=== PATIENT | female | born 1975 | race Caucasian/White ===

== ENCOUNTER 2017-01-24 15:17 | Outpatient (CLI) | payer OTHER ==
[2013-05-11 00:55] VITALS: BP 128/74
[2017-01-24 15:35] LABS: BASOPHILS % 0.5 (0.0-1.5); MEAN CORPUSCULAR HEMOGLOBIN 31.1 pg (28.0-34.0); MEAN CORPUSCULAR VOLUME 88.9 fl (80.0-100.0); MONOCYTES % 3.8 % (0.0-11.0); NEUTROPHILS # 6.9 # k/uL (1.4-7.7)
[2017-01-24 16:02] LABS: eGFR (African) > 60; eGFR (Non-African) > 60
== END 2017-01-24 15:19 ==
LOC: LAB 15:17
PROVIDERS: ATTEND Physician Assistant
DX: R10.13 Epigastric pain (principal)
CPT/HCPCS: 36415; 80053; 85025

== ENCOUNTER 2017-01-26 10:12 | Day surgery (SDC) | payer OTHER ==
[2013-05-11 00:55] VITALS: BP 128/74
--- NOTE | 2017-01-27 10:13 | Operative Note ---
SURGEON: Yovanny Hess MD ANESTHESIA: MAC anesthesia. ESTIMATED BLOOD LOSS: None. COMPLICATIONS: None. FINDINGS: Normal exam. PREOPERATIVE DIAGNOSIS: Epigastric pain. POSTOPERATIVE DIAGNOSIS: Epigastric pain. PROCEDURE PERFORMED: Esophagogastroduodenoscopy (EGD). INDICATIONS FOR PROCEDURE: This is a 41-year-old woman with 2 weeks of epigastric pain, nausea, and vomiting after eating. DESCRIPTION OF PROCEDURE: The patient was brought to the endoscopy suite and placed in the left lateral decubitus position. MAC anesthesia was administered by the miniature set constructor. The endoscope was inserted and passed easily to the duodenum. The duodenum, stomach , and esophagus were all normal. There were no ulcers or other lesions. There was no gastritis. The endoscope was removed. RECOMMENDATIONS: I recommend a gallbladder ultrasound to further evaluate her pain. cc: Dr. Stefanie SMITH
== END 2017-01-26 10:13 ==
LOC: OPSURG 10:12
PROVIDERS: ATTEND Colon & Rectal Surgery
DX: R10.13 Epigastric pain (principal)
CPT/HCPCS: 81025; J2704; 43235; S1016

== ENCOUNTER 2017-01-27 07:37 | Emergency (ER) | payer OTHER ==
[2017-01-27] MEDS: 0.9 % SODIUM CHLORIDE 1,000 ML IV ONE (08:39)
[2017-01-27] MEDS: ONDANSETRON HCL/PF 4 MG/ 2ML VIAL IVP ONE (08:39)
[2017-01-27] MEDS: KETOROLAC TROMETHAMINE 30 MG/1ML VIAL IVP ONE (08:39)
[2017-01-27] MEDS ORDERED: PHARMACY KEY 1 EACH EACH MC ONE (08:43)
[2017-01-27] MEDS: HYOSCYAMINE SULFATE 0.125 MG TAB.SUBL SL ONE (09:05)
[2017-01-27 11:29] VITALS: BP 126/80
--- NOTE | 2017-01-27 11:45 | ED Physician Documentation ---
Abdominal Pain - HISTORIAN Historian: patient - HPI Stated Complaint: ABD PAIN/N/V/D Chief Complaint: Abdominal Pain Additonal Information: abd. pain, n/v/d for last 3 weeks, EGD Monday neg Onset: days ago (20) Duration: waxing, waning, sudden-onset Timing: still present Context: denies: out of country travel, bad food, recent trauma Severity: moderate Quality: sharp Front/Back of Body, Lg (Color): 1 - pain Associated Symptoms: nausea, vomiting, diarrhea Exacerbated by: food Relieved by: other - ROS CONST: no problems GI/: denies: constipation, black stools, bloody urine, bloody stools, dark urine, problems urinating CVS/RESP: none EYES/ENT: none MS/SKIN/LYMPH: none NEURO/PSYCH: none - SOCIAL HX Smoking History: non-smoker Alcohol Use: occasionally Drug Use: none - FAMILY HX Family History: no significant history - PAST HX Past History: peptic ulcer Ischemic Bowel Risk Factors: none Other History: none Surgeries/Procedures: BLT Immunizations: referred to PCP Allergies/Adverse Reactions: Allergies Allergy/AdvReac Type Severity Reaction Status Date / Time No Known Allergies Allergy Verified 01/27/17 10:00 - VITAL SIGNS Vital Signs: Vital Signs Temp Pulse Resp BP Pulse Ox 98.1 F 84 18 126/80 98 01/27/17 11:20 01/27/17 11:20 01/27/17 11:20 01/27/17 11:20 01/27/17 07:39 - REVIEWED ASSESSMENTS Nursing Assessment Reviewed: Yes Vitals Reviewed: Yes Progress - Results/Orders Results/Orders: amylase, liver/gb/pancreas us, amylase ordered - Progress Progress: pt. stable in er, improved with hyoscyamine, zofran, ns and toradol Critical Care Note - Critical Care Note Total Time (mins): 0 ED Results Lab/Radiology - Lab Results Lab Results: Lab Results 01/27/17 08:40 Amylase 68 U/L U/L (20-104) - Radiology Radiology Impressions: us gb neg - Orders Orders: ED Orders Category Date Time Status Place Saline Lock/IV .PRN Care 01/27/17 08:11 Active ULTRASOUND OF ABD LIMITED [US ABDOMEN LIMITED] [US] Exams 01/27/17 Taken Stat AMYLASE Routine Lab 01/27/17 08:40 Completed 0.9 % Sodium Chloride [Normal Saline] 1,000 ml Med 01/27/17 08:11 Discontinued IV Q1H Hyoscyamine Sulfate [Oscimin Sl] Med 01/27/17 08:15 Discontinued 0.125 mg SL NOW ONE Ketorolac Tromethamine [Toradol] Med 01/27/17 08:15 Discontinued 30 mg IVP NOW ONE Ondansetron HCl/Pf [Zofran 4 mg/2 ml] Med 01/27/17 08:11 Discontinued 8 mg IVP NOW ONE [facility] Med 01/27/17 08:43 Discontinued 1 each MC .STK-MED ONE Abdominal Pain Physical Exam - Physical Exam General Appearance: alert, moderate distress EENT: eye inspection normal, ENT inspection normal, pharynx normal, no signs of dehydration, ELI, no nystagmus, TM's nml NECK: normal inspection, thyroid normal, supple RESPIRATORY: no resp distress, chest non-tender, breath sounds normal CVS: reg rate & rhythm, heart sounds normal, equal pulses, no murmur, no gallop , PMI nml, no JVD, no friction rub ABDOMEN: soft, tenderness (right upper quadrant), decreased BS BACK: normal inspection, no CVA tenderness SKIN: warm/dry, normal color EXTREMITIES: non-tender, normal range of motion, no evidence of injury, no edema NEURO: oriented X3, CN's nml as tested, motor nml, sensation nml, mood/affect nml, cognition normal Vital Signs: Vital Signs Temp Pulse Resp BP Pulse Ox 98.1 F 84 18 126/80 98 01/27/17 11:20 01/27/17 11:20 01/27/17 11:20 01/27/17 11:20 01/27/17 07:39 Discharge Clincal Impression: Biliary colic Referrals: tSefanie Colindres MD [Primary Care Provider] - 2 Days Comments: charged with scripts for reglan, hyoscyamine and zofran Condition: Stable Disposition: 01 HOME, SELF-CARE Decision to Admit: NO Decision Time: 11:49
--- NOTE | 2017-01-27 14:42 | Diagnostic Imaging Report ---
[facility] [address] [facility].[address] [address] Report Submission Date: January 27, 2017 9:55:16 AM CDT Patient Study Name: KAUSHIK GARNICA Date: January 27, 2017 8:47:10 AM CDT Modality Type: US Gender: F Description: US ABD LIMITED : 77 Institution: [facility] Physician KOBI AGUILAR - WILLIS Ultrasound right upper quadrant Clinical history right upper quadrant pain Technique real-time ultrasonography and color Doppler was performed right upper quadrant FINDINGS: The liver is increased in echogenicity consistent fatty change in the liver. There is no ascites. Pancreas is within normal limits. The pancreatic head measures 2 cm. Right kidney is unremarkable. The portal vein is patent. The gallbladder is within normal limits. The right kidney measures 10.8 x 4 cm. The gallbladder measures 7 cm in length gallbladder wall thickness is 2.5 mm. The common bile duct measures 4 mm IMPRESSION: Fatty change in the liver otherwise negative study Electronically signed on January 27, 2017 9:55:16 AM CDT by: Iggy SMITH
== END 2017-01-27 11:20 | disposition home or self-care (01) ==
LOC: ED 07:37
DX: K80.50 Calculus of bile duct without cholangitis or cholecystitis without obstruction (principal)
CPT/HCPCS: 76705; 82150; A9270; J1885; J2405; J7030; 96361; 96374; 96375; 99283; S1016

== ENCOUNTER 2017-07-26 11:52 | Outpatient (CLI) | payer OTHER | END 2017-07-26 11:53 | LOC: LAB 11:52 | PROVIDERS: ATTEND Physician Assistant | DX: N91.2 Amenorrhea, unspecified (principal); N83.202 Unspecified ovarian cyst, left side | CPT/HCPCS: 36415; 82670; 83001; 83002; 84146; 84439; 84443; 84481 ==

== ENCOUNTER 2017-12-08 09:22 | Outpatient (CLI) | payer OTHER ==
[2017-12-08 09:43] LABS: BASOPHILS % 0.7 (0.0-1.5); EOSINOPHILS % 1.8 % (0.0-6.8); MEAN CORPUSCULAR HEMOGLOBIN 31.5 pg (28.0-34.0); MEAN CORPUSCULAR VOLUME 87.5 fl (80.0-100.0); MONOCYTES % 3.4 % (0.0-11.0); NEUTROPHILS # 5.1 # k/uL (1.4-7.7)
[2017-12-08 09:59] LABS: eGFR (African) > 60; eGFR (Non-African) > 60
== END 2017-12-08 09:23 ==
LOC: RT 09:22
PROVIDERS: ATTEND Physician Assistant
DX: R42 Dizziness and giddiness (principal); R00.2 Palpitations
CPT/HCPCS: 36415; 80053; 84484; 85025

== ENCOUNTER 2018-01-16 13:37 | Outpatient (CLI) | payer OTHER | END 2018-01-16 13:40 | LOC: CARD 13:37 | PROVIDERS: ATTEND Internal Medicine Cardiovascular Disease | DX: R00.2 Palpitations (principal); R42 Dizziness and giddiness; E66.9 Obesity, unspecified | CPT/HCPCS: 99213 ==

== ENCOUNTER 2018-02-20 11:15 | Outpatient (CLI) | payer OTHER | END 2018-02-20 11:16 | LOC: CARD 11:15 | PROVIDERS: ATTEND Internal Medicine Cardiovascular Disease | DX: R00.2 Palpitations (principal); R42 Dizziness and giddiness; E66.9 Obesity, unspecified | CPT/HCPCS: 99213 ==

== ENCOUNTER 2019-06-03 18:00 | Emergency (ER) | payer OTHER ==
--- NOTE | 2019-06-03 18:11 | ED Physician Documentation ---
General Adult - HISTORIAN Historian: patient - HPI Stated Complaint: right wrist, hand and forearm pain Chief Complaint: Upper Extremity Injury Onset: days ago (3) Timing: still present Severity: moderate (03/27) Further Comments: yes (She was on the mower over the weekend and moved some yard debris and she felt the arm was "pulled" by the debris and she has had increasing pain since. She last had Ibuprofen early this am with mild relief of pain. She has no loss or decrease in ROM although supination is painful. She has no loss of sensation) - ROS CONST: no problems - PAST HX Past History: other (migraines ) Immunizations: UTD Allergies/Adverse Reactions: Allergies Allergy/AdvReac Type Severity Reaction Status Date / Time aspirin Allergy Hives Verified 06/03/19 18:15 Home Medications: Ambulatory Orders Medication Instructions Recorded Erenumab-Aooe [Aimovig 70 mg IM MONTH 06/03/19 Autoinjector] - SOCIAL HX Smoking History: non-smoker Alcohol Use: none Drug Use: none - FAMILY HX Family History: No - VITAL SIGNS Vital Signs: Vital Signs Temp Pulse Resp BP Pulse Ox 126/80 01/27/17 11:20 - REVIEWED ASSESSMENTS Nursing Assessment Reviewed: Yes Vitals Reviewed: Yes ED Results Lab/Radiology - Radiology Radiology Impressions: FOREARM RIGHT HISTORY: PAIN ON RT SIDE AFTER LAWN MOWING ACCIDENT. FINDINGS: AP and lateral views of the right forearm demonstrates no evidence of fracture or other acute bone or joint abnormality identified. No radiopaque foreign body is identified. IMPRESSION: Unremarkable study. Electronically signed on Jun 03, 2019 6:54:25 PM CDT by: Syed Donovan Right wrist three views History: Pain after injury Findings: The right wrist is unremarkable without fracture, dislocation, arthropathy, or focal bone lesion. Electronically signed on Jun 03, 2019 6:54:20 PM CDT by: River Vanessa Right hand three views History: Pain after injury Findings: Mild scapholunate joint space widening is indeterminate for scapholunate ligament injury, likely chronic as this rarely occurs in the acute setting. There is no evidence of fracture, dislocation, arthropathy, or focal bone lesion. Electronically signed on Jun 03, 2019 6:55:14 PM CDT by: River Vanessa General Adult Physical Exam - PHYSICAL EXAM GENERAL APPEARANCE: no distress EENT: eye inspection normal, no signs of dehydration NECK: normal inspection RESPIRATORY: no resp distress, chest non-tender, breath sounds normal CVS: reg rate & rhythm, heart sounds normal BACK: normal inspection SKIN: warm/dry EXTREMITIES: other (right wrist and forearm with minor swelling. NO obvious deformity. Pulses + cap refill + FROM although painful with supination ) NEURO: oriented X3 Discharge Clincal Impression: Arm pain Qualifiers: Laterality: right Qualified Code(s): M79.601 - Pain in right arm Referrals: Mamta Paez FNP [Primary Care Provider] - 2 Days Comments: 1. OTC meds as directed as needed for pain 2. Ice for comfort 3. Follow up with PCP if MRI is needed 4. Return to ER for any increasing concerns Condition: Stable Disposition: 01 HOME, SELF-CARE Decision to Admit: NO Date of Decison to Admit: 06/03/19 Decision Time: 18:59
[2019-06-03] MEDS: KETOROLAC TROMETHAMINE 60 MG/2 ML VIAL IM ONE (18:31)
[2019-06-03 19:13] VITALS: BP 126/85
--- NOTE | 2019-06-05 14:42 | Diagnostic Imaging Report ---
JESSICA CLINTON [facility] [address] [facility] [address] [address] Report Submission Date: Jun 03, 2019 6:54:20 PM CDT Patient Study Name: KAUSHIK FARMER Date: Jun 03, 2019 6:07:37 PM CDT Modality Type: DX Gender: F Description: WRIST 3 VIEWS OR MORE : 77 Institution: [facility] Physician: JESSICA CLINTON Right wrist three views History: Pain after injury Findings: The right wrist is unremarkable without fracture, dislocation, arthropathy, or focal bone lesion. Electronically signed on Jun 03, 2019 6:54:20 PM CDT by: River SMITH
--- NOTE | 2019-06-05 14:43 | Diagnostic Imaging Report ---
JESSICA CLINTON [facility] [address] [facility] [address] [place], [place]. [address] Report Submission Date: Jun 03, 2019 6:55:14 PM CDT Patient Study Name: KAUSHIK FARMER Date: Jun 03, 2019 6:07:37 PM CDT Modality Type: DX Gender: F Description: HAND 3 VIEWS OR MORE : 77 Institution: [facility] Physician: JESSICA CLINTON Right hand three views History: Pain after injury Findings: Mild scapholunate joint space widening is indeterminate for scapholunate ligament injury, likely chronic as this rarely occurs in the acute setting. There is no evidence of fracture, dislocation, arthropathy, or focal bone lesion. Electronically signed on Jun 03, 2019 6:55:14 PM CDT by: River SMITH
--- NOTE | 2019-06-05 14:43 | Diagnostic Imaging Report ---
JESSICA CLINTON [facility] [address] [facility] [address] [place], [place]. [address] Report Submission Date: Jun 03, 2019 6:54:25 PM CDT Patient Study Name: KAUSHIK FARMER Date: Jun 03, 2019 6:07:37 PM CDT Modality Type: DX Gender: F Description: FOREARM 2 VIEWS : 77 Institution: [facility] Physician: JESSICA CLINTON FOREARM RIGHT HISTORY: PAIN ON RT SIDE AFTER LAWN MOWING ACCIDENT. FINDINGS: AP and lateral views of the right forearm demonstrates no evidence of fracture or other acute bone or joint abnormality identified. No radiopaque foreign body is identified. IMPRESSION: Unremarkable study. Electronically signed on Jun 03, 2019 6:54:25 PM CDT by: Syed SMITH
== END 2019-06-03 19:12 | disposition home or self-care (01) ==
LOC: ED 18:00
DX: M79.601 Pain in right arm (principal)
CPT/HCPCS: 73090; 73110; 73130; 96372; 99283; 99284; J1885